=== PATIENT | female | born 1985 | race Caucasian/White ===

== ENCOUNTER 2018-10-12 10:16 | Emergency (ER) | payer MEDICAID, OTHER ==
[2018-10-12 10:17] VITALS: BMI 29.2
[2018-10-12 10:20] VITALS: RESP 16; TEMP 98.2; O2SAT 99
--- NOTE | 2018-10-12 10:56 | ED PDOC ---
HPI: Abdomen Time Seen by Provider: 10/12/18 10:33 Chief Complaint (Nursing): Abdominal Pain Chief Complaint (Provider): Abdominal Pain History Per: Patient History/Exam Limitations: no limitations Onset/Duration Of Symptoms: Days (past week) Location Of Pain/Discomfort: Diffuse Associated Symptoms: Nausea, Vomiting Additional Complaint(s): Maryam De La Vega is a 33 year old female with a past medical history of Lupus, ventral hernia and cholecystectomy who presents to the emergency department complaining of diffuse abdominal pain, associated with nausea and non bloody vomiting for the past week. She states she has been having normal bowel m ovements and had one yesterday evening. Patient further reports that for the past x3 days, she has had abnormal vaginal bleeding described as "passing clots." She denies dysuria, hematuria, fever, melena, hematochezia, or rectal bleeding. Of note, patient has not taken a test at home. PMD: No provider LMP: September 01 Past Medical History Reviewed: Historical Data, Nursing Documentation, Vital Signs Vital Signs: Last Vital Signs Temp 98.2 F 10/12/18 10:19 Pulse 87 10/12/18 10:19 Resp 16 10/12/18 10:19 BP 124/82 10/12/18 10:19 Pulse Ox 99 10/12/18 10:19 - Medical History PMH: Arthritis, Hepatitis (autoimmune), Rheumatoid Arthritis Other PMH: Lupus - Surgical History Surgical History: Cholecystectomy (2016 [facility] [place]) Other surgeries: ventral hernia - Family History Family History: States: Unknown Family Hx - Immunization History Hx Tetanus Toxoid Vaccination: No Hx Influenza Vaccination: No Hx Pneumococcal Vaccination: No - Home Medications Home Medications: Ambulatory Orders Medication Instructions Recorded Hydroxychloroquine Sulfate 200 mg PO BID 10/26/15 [Plaquenil] Prednisone 10 mg PO DAILY 10/26/15 azaTHIOprine [Imuran] 50 mg PO DAILY 05/19/18 Amoxicillin/Clavulanate [Augmentin 1 tab PO Q12 7 Days tab 05/24/18 875 MG-125 MG] Diclofenac Sodium [Diclofenac 100 mg PO Q8H PRN #90 tab.er.24h 05/24/18 Sodium ER] Doxylamine/Pyridoxine HCl (B6) 1 - 2 each PO HS PRN #12 tablet. 10/12/18 [Priyanka Aguilera 10-10 mg Tablet] Nitrofurantoin Macrocrystals 100 mg PO BID #14 cap 10/12/18 [Macrobid] Multivit/Folic Acid/I 1 tab PO DAILY #30 tab 10/12/18 [ Plus] - Allergies Allergies/Adverse Reactions: Allergies Allergy/AdvReac Type Severity Reaction Status Date / Time No Known Allergies Allergy Verified 06/22/16 09:25 Review of Systems ROS Statement: Except As Marked, All Systems Reviewed And Found Negative Gastrointestinal: Positive for: Nausea, Vomiting, Abdominal Pain. Negative for: Melena, Hematochezia, Rectal Pain (bleeding) Genitourinary Female: Positive for: Vaginal Bleeding. Negative for: Dysuria, Hematuria Physical Exam - Reviewed Nursing Documentation Reviewed: Yes Vital Signs Reviewed: Yes - Physical Exam Appears: Positive for: Non-toxic. Negative for: Well (mild painful distress) Head Exam: Positive for: ATRAUMATIC, NORMOCEPHALIC Skin: Positive for: Normal Color, Warm, Dry Cardiovascular/Chest: Positive for: Regular Rate, Rhythm. Negative for: Murmur Respiratory: Positive for: Normal Breath Sounds. Negative for: Respiratory Distress Gastrointestinal/Abdominal: Positive for: Tenderness (diffuse abdominal tenderness greater in epigastric tenderness; (-) RLQ tenderness), Other ((-) Psoas sign, obturator sign, osman's sign) Pelvic Exam: Positive for: Other (right pelvic tenderness) Back: Positive for: Normal Inspection. Negative for: L CVA Tenderness, R CVA Tenderness, Vertebral Tenderness - Laboratory Results Result Diagrams: 10/12/18 11:28 10/12/18 11:28 Urine POC: Positive - ECG O2 Sat by Pulse Oximetry: 99 (RA) Pulse Ox Interpretation: Normal Medical Decision Making Medical Decision Making: Time: 1053 Impression: abdominal pain Plan: --Type and screen --Beta-HCG, quantitative --CMP --Lipase --ED urine --CBC with differential --Reglan 10 mg IVPB --Lactated Ringers 1L --Urine culture --Saline Lock --Urinalysis --OB limited US Time: 1405 US FINDINGS: Variable presentation. Posterior placenta. No evidence of abruption or previa Gestational age derived from LMP 5 weeks 6 days. PATRICE 06/08/2019. Gestational age derived from the following biometric parameters 19 weeks 4 days. PATRICE 03/04/2019. Biparietal diameter 4.44 cm Head circumference 16.73 cm Abdominal circumference 14.28 cm Femur length 3.12 cm Estimated weight 303.4 g Calculated cardiac rate 153 beats per min. Closed cervix measuring 4.62 cm IMPRESSION: Nineteen weeks 4 days live intrauterine gestation. There is discordance with respect a gestational ages provided. 1406 Case d/w Dr. Morton who states pt. must f/u with her OBGYN and shower maid this coming week to determine if she is to continue Plaquenil and Prednisone. No further intervention is required at this time. On re-evaluation, pt. reports feeling much better. Pt. informed of results. States during her last she was advised by her shower maid to take prednisone and plaquenil during the entire . Advised to f/u with her OBGYN and shower maid this coming week without fail but is to return to ED immediately if symptoms worsen.. Pt. verbalized correct understanding of plan and care. Scribe Attestation: Documented by Tristan Pat, acting as a scribe for Braden Bess Provider Scribe Attestation: All medical record entries made by the Scribe were at my direction and personally dictated by me. I have reviewed the chart and agree that the record accurately reflects my personal performance of the history, physical exam, medical decision making, and the department course for this patient. I have also personally directed, reviewed, and agree with the discharge instructions and disposition. Disposition - Clinical Impression Clinical Impression: Threatened miscarriage - Patient ED Disposition Is Patient to be Admitted: No - Disposition Referrals: [facility] [Outside] Disposition: Routine/Home Disposition Time: 14:06 Condition: IMPROVED Additional Instructions: FOLLOW UP WITH YOUR LAMP REPLACER AND OBGYN NEXT WEEK FOR FURTHER EVALUATION RETURN TO ED IMMEDIATELY IF SYMPTOMS WORSEN MARYAM DE LA VEGA, thank you for letting us take care of you today. Your provider was Elysia Bal MD and you were treated for ABD PAIN. The emergency medical care you received today was directed at your acute symptoms. If you were prescribed any medication, please fill it and take as directed. It may take several days for your symptoms to resolve. Return to the Emergency Department if your symptoms worsen, do not improve, or if you have any other problems. Please contact your doctor or call one of the physicians/clinics you have been referred to that are listed on the Patient Visit Information form that is included in your discharge packet. Bring any paperwork you were given at discharge with you along with any medications you are taking to your follow up visit. Our treatment cannot replace ongoing medical care by a primary care provider outside of the emergency department. Thank you for allowing the [facility] team to be part of your care today. If you had an X-Ray or CT scan: A Radiologist will review the ED reading if any change in treatment is needed we will contact you. If you had a blood, urine, or wound culture: It will take several days for the results, if any change in treatment is needed we will contact you. If you had an STI test: It will take 48 hours for the results. Please call after 1 week if you have not heard back. Prescriptions: Doxylamine/Pyridoxine HCl (B6) [Priyanka Aguilera 10-10 mg Tablet] 1 - 2 each PO HS PRN #12 tablet.[address] DUNBAR Reason: Nausea/Vomiting Nitrofurantoin Macrocrystals [Macrobid] 100 mg PO BID #14 cap Multivit/Folic Acid/I [ Plus] 1 tab PO DAILY #30 tab Instructions: Bleeding With (DC), Threatened Miscarriage (DC) Forms: [employer] ([place])
[2018-10-12] MEDS ORDERED: Lactated Ringer's 1,000 ML IV SCH (11:00)
[2018-10-12 11:39] LABS: BASO % 0.4 % (0.0-2.0); EOS # 0.3 K/uL (0.0-0.7); EOS % 3.7 % (0.0-4.0); HEMOGLOBIN 13.4 g/dL (12.0-16.0); LYMPH # 1.6 K/uL (1.0-4.3); LYMPH % 23.4 % (20.0-40.0); MEAN CELL VOLUME 86.8 fl (81.0-99.0); MEAN CORPUSCULAR HEMOGLOBIN 28.9 pg (27.0-31.0); MEAN CORPUSCULAR HGB CONC 33.3 g/dL (33.0-37.0); MEAN PLATELET VOLUME 8.3 fl (7.2-11.7); MONO # 0.4 K/uL (0.0-0.8); NEUT # 4.6 K/uL (1.8-7.0); NEUT % 66.5 % (50.0-75.0); RBC 4.65 Mil/uL (3.80-5.20); RED CELL DISTRIBUTION WIDTH 14.6 % (11.5-14.5)
[2018-10-12 11:43] LABS: SQUAMOUS EPITHIAL 9 /hpf (0-5); URINE BACTERIA RARE (<OCC); URINE BILIRUBIN NEGATIVE (NEGATIVE); URINE BLOOD NEGATIVE (NEGATIVE); URINE CLARITY CLOUDY (Clear); URINE COLOR YELLOW (YELLOW); URINE GLUCOSE (UA) NEG (NEGATIVE); URINE LEUKOCYTE ESTERASE TRACE Leu/uL (Negative); URINE PROTEIN NEGATIVE (NEGATIVE)
[2018-10-12 11:47] LABS: ALBUMIN 3.6 g/dL (3.5-5.0); ALT/SGPT 34 U/L (9-52); AST/SGOT 45 U/L (14-36); BLOOD UREA NITROGEN 3 mg/dl (7-17); CALCIUM 9.4 mg/dL (8.4-10.2); GFR NON-AFRICAN AMERICAN > 60; LIPASE 97 U/L (23-300)
--- NOTE | 2018-10-12 14:09 | US ---
Date of service: 10/12/2018 PROCEDURE: Ob , limited HISTORY: Pelvic and abdominal pain. COMPARISON: None TECHNIQUE: Standard protocol for this study/examination. FINDINGS: Variable presentation. Posterior placenta. No evidence of abruption or previa Gestational age derived from LMP 5 weeks 6 days. PATRICE 06/08/2019. Gestational age derived from the following biometric parameters 19 weeks 4 days. PATRICE 03/04/2019. Biparietal diameter 4.44 cm Head circumference 16.73 cm Abdominal circumference 14.28 cm Femur length 3.12 cm Estimated weight 303.4 g Calculated cardiac rate 153 beats per min. Closed cervix measuring 4.62 cm IMPRESSION: Nineteen weeks 4 days live intrauterine gestation. There is discordance with respect a gestational ages provided.
[2018-10-12 15:11] VITALS: BP 126/75; PULSE 83
--- NOTE | 2018-10-14 11:11 | ED PDOC ---
ED Additional Note - Date & Time of Evaluation Date of Evaluation: 10/14/18 Time of Evaluation: 11:05 - Physician Additional Note Physician Additional Note: Urine culture shows > 100K Corynebacterium species but no guidelines exist for antibiotic sensitivity. I spoke with patient who states that her abdominal discomfort is unchanged but no worse and continues to deny dysuria or urinary frequency. She was advised to continue Nitrofurantoin and to call her [employer] today without fail to arrange appointment within the next couple of days to have urine culture repeated in order to evaluate for improvement. Patient was further advised to return to ED immediately if her abdominal pain worsens. Patient demonstrated understanding.
== END 2018-10-12 15:00 | disposition home or self-care (01) ==
LOC: H.ER 10:16
DX: O20.0 Threatened abortion (principal); M32.9 Systemic lupus erythematosus, unspecified; O99.89 Other specified diseases and conditions complicating pregnancy, childbirth and the puerperium; M06.9 Rheumatoid arthritis, unspecified; Z3A.19 19 weeks gestation of pregnancy; Z36.9 Encounter for antenatal screening, unspecified
CPT/HCPCS: 76815; 80053; 81003; 83690; 84702; 85025; 86850; 86900; 87086; 96360; 99284; J2765; J7120